=== PATIENT | female | born 1995 | race Caucasian/White ===

== ENCOUNTER 2019-03-07 01:26 | Emergency (ER) | payer OTHER ==
[~2019-03-07] VITALS: Ht 172.7 cm; Wt 68.2 kg
[2019-03-07 01:29] VITALS: BP 140/97; TEMP 98.6
[2019-03-07 03:20] VITALS: PULSE 65
== END 2019-03-07 03:21 | disposition home or self-care (01) ==
LOC: COL.ER 01:26
DX: R42 Dizziness and giddiness (principal); R20.2 Paresthesia of skin